=== PATIENT | female | born 1955 | race Caucasian/White ===

== ENCOUNTER 2017-12-07 14:51 | Emergency (ER) | payer MEDICARE, OTHER ==
[~2017-12-07] VITALS: Ht 167.6 cm; Wt 78.9 kg
[~2017-12-07 14:51] MED LIST: ATOR40TA; BLOOD PRESSURE MED; CYCL10 PO; FLUDROCORTISONE PO; HYDACE5 PO; HYDCOR20 PO; HYDMOR4 PO; INSLI100I; INSULANI; MECL25 PO; MELO7.5; MELO7.5 PO; METF500; METO5A; NAPR220; Norco 5-325 Ta1 EACH PO; OMEP20ER; ONDA8 PO; OXYACE5T PO; Omeprazole20 M1; POTA10T; PRED10 PO; PROM25 PO; ROSU10TA; RXCYCL10 PO; RXHYDACE PO; RXHYDMOR2 PO; RXOXYACE PO; RXPROM25 PO; [UNRECOGNIZED DRUG - REMARK]
[2017-12-07] MEDS ORDERED: Cleocin HCl150 MG PO (15:17)
[2018-07-28] MEDS ORDERED: ACET325 PO (07:23)
[2018-07-28] MEDS ORDERED: ONDA4ODT (07:26)
[2018-07-28] MEDS ORDERED: PROBIOTIC1 EAC1 PO (07:26)
[2018-07-28] MEDS ORDERED: SIME80CH PO (07:27)
[2018-07-28] MEDS ORDERED: Senna-Docusate1 EACH PO (07:27)
[2018-07-28] MEDS ORDERED: OXYC10TA19 PO (07:28)
== END 2017-12-07 15:22 | disposition home or self-care (01) ==
LOC: ER 14:51
DX: H93.8X1 Other specified disorders of right ear (principal); H92.01 Otalgia, right ear; Z88.2 Allergy status to sulfonamides; Z91.040 Latex allergy status; Z79.899 Other long term (current) drug therapy; Z79.84 Long term (current) use of oral hypoglycemic drugs; Z79.2 Long term (current) use of antibiotics; Z87.891 Personal history of nicotine dependence
CPT/HCPCS: 99282

== ENCOUNTER → 2017-12-09 | Outpatient (CLI) | payer MEDICARE, OTHER ==
[~2017-12-09] MED LIST changes: +ACET325 PO; +ATOR40TA PO; +CARV3.125 PO; +Cleocin HCl150 MG PO; +DULO30 PO; +FAMO20 PO; +FLUC200 PO; +FOLI400 PO; +FURO40 PO; +Lisinopril2.5 MG PO; +METF500C PO; +ONDA4ODT; +OXYC10TA19 PO; +OXYC5 PO; +PANT40 PO; +POTCHL20ER PO; +PROBIOTIC1 EAC1 PO; +SIME80CH PO; +Senna-Docusate1 EACH PO; +TRAZ50 PO
== END ==
LOC: LAB 15:29
DX: H60.01 Abscess of right external ear (principal)
CPT/HCPCS: 87070; 87205

== ENCOUNTER → 2017-12-14 | Outpatient (CLI) | payer MEDICARE, OTHER | END | disposition home or self-care (01) | LOC: LAB 17:42 | DX: H61.001 Unspecified perichondritis of right external ear (principal) | CPT/HCPCS: 87070; 87205 ==

== ENCOUNTER → 2017-12-21 | Outpatient (CLI) | payer MEDICARE, OTHER | END | disposition home or self-care (01) | LOC: LAB 12:18 | DX: H61.001 Unspecified perichondritis of right external ear (principal) | CPT/HCPCS: 87070; 87075; 87077; 87205 ==

== ENCOUNTER → 2017-12-29 | Outpatient (CLI) | payer MEDICARE, OTHER | LOC: LAB 13:01 | DX: H61.001 Unspecified perichondritis of right external ear (principal) | CPT/HCPCS: 87070; 87205 ==

== ENCOUNTER → 2018-01-17 | Outpatient (CLI) | payer MEDICARE, OTHER ==
[~2018-01-17] MED LIST changes: -ACET325 PO; -ATOR40TA PO; -CARV3.125 PO; -DULO30 PO; -FAMO20 PO; -FLUC200 PO; -FOLI400 PO; -FURO40 PO; -Lisinopril2.5 MG PO; -METF500C PO; -ONDA4ODT; -OXYC10TA19 PO; -OXYC5 PO; -PANT40 PO; -POTCHL20ER PO; -PROBIOTIC1 EAC1 PO; -SIME80CH PO; -Senna-Docusate1 EACH PO; -TRAZ50 PO
== END ==
LOC: LAB 16:09 → LAB SHORT 16:09
DX: H61.001 Unspecified perichondritis of right external ear (principal)
CPT/HCPCS: 87070; 87205

== ENCOUNTER 2018-04-02 08:31 | Emergency (ER) | payer MEDICARE, OTHER ==
[~2018-04-02] VITALS: Ht 165.1 cm; Wt 71.2 kg
[2018-04-02] MEDS ORDERED: Lisinopril2.5 MG PO (09:47)
[2018-04-02] MEDS ORDERED: FOLI400 PO (09:47)
[2018-04-02] MEDS ORDERED: FURO40 PO (09:47)
[2018-04-02] MEDS ORDERED: METF500C PO (09:47)
[2018-04-02] MEDS ORDERED: ATOR40TA PO (09:47)
[2018-04-02] MEDS ORDERED: PANT40 PO (09:48)
[2018-04-02] MEDS ORDERED: CARV3.125 PO (09:48)
[2018-04-02] MEDS ORDERED: OXYC5 PO (09:48)
[2018-04-02] MEDS ORDERED: FAMO20 PO (09:48)
[2018-04-02] MEDS ORDERED: DULO30 PO (09:48)
[2018-04-02] MEDS ORDERED: TRAZ50 PO (09:49)
== END 2018-04-02 10:04 | disposition home or self-care (01) ==
LOC: ER 08:31
DX: Z46.59 Encounter for fitting and adjustment of other gastrointestinal appliance and device (principal); Z88.2 Allergy status to sulfonamides; Z91.040 Latex allergy status; Z79.899 Other long term (current) drug therapy; Z79.84 Long term (current) use of oral hypoglycemic drugs; Z87.891 Personal history of nicotine dependence
CPT/HCPCS: 99283

== ENCOUNTER 2018-06-13 13:05 | Day surgery (SDC) | payer MEDICARE, OTHER ==
[~2018-06-13 13:05] MED LIST changes: +ATOR40TA PO; +CARV3.125 PO; +DULO30 PO; +FAMO20 PO; +FOLI400 PO; +FURO40 PO; +Lisinopril2.5 MG PO; +METF500C PO; +OXYC5 PO; +PANT40 PO; +TRAZ50 PO
[2018-06-14] MEDS ORDERED: FLUC200 PO (13:52)
== END 2018-06-13 13:55 | disposition home or self-care (01) ==
LOC: ATC 13:05
DX: K65.1 Peritoneal abscess (principal)
CPT/HCPCS: 96365; J1335

== ENCOUNTER 2018-06-14 00:12 | Day surgery (SDC) | payer MEDICARE, OTHER ==
[2018-06-14] MEDS ORDERED: FLUC200 PO (13:52)
== END 2018-06-14 14:12 | disposition home or self-care (01) ==
LOC: ATC 00:12
DX: K65.1 Peritoneal abscess (principal)
CPT/HCPCS: 96365; J1335

== ENCOUNTER 2018-06-15 07:29 | Day surgery (SDC) | payer MEDICARE, OTHER ==
[~2018-06-15 07:29] MED LIST changes: +FLUC200 PO
== END 2018-06-15 14:06 | disposition home or self-care (01) ==
LOC: ATC 07:29
DX: K65.1 Peritoneal abscess (principal); Z87.891 Personal history of nicotine dependence
CPT/HCPCS: 96365; J1335

== ENCOUNTER 2018-06-16 00:04 | Day surgery (SDC) | payer MEDICARE, OTHER | END 2018-06-16 14:45 | disposition home or self-care (01) | LOC: ATC 00:04 | DX: K65.1 Peritoneal abscess (principal); Z87.891 Personal history of nicotine dependence; H61.001 Unspecified perichondritis of right external ear | CPT/HCPCS: 96365; J1335 ==

== ENCOUNTER 2018-06-17 00:19 | Day surgery (SDC) | payer MEDICARE, OTHER | END 2018-06-17 14:37 | disposition home or self-care (01) | LOC: ATC 00:19 | DX: K65.1 Peritoneal abscess (principal); Z87.891 Personal history of nicotine dependence; H61.001 Unspecified perichondritis of right external ear | CPT/HCPCS: 96365; J1335 ==

== ENCOUNTER 2018-06-18 13:51 | Day surgery (SDC) | payer MEDICARE, OTHER ==
[2018-06-18 14:41] LABS: BASOPHILS ABSOLUTE AUTO 0.06 K/mm3 (0.00-0.23); BASOPHILS PERCENT AUTO 1 % (0-2); EOSINOPHILS PERCENT AUTO 1 % (0-6); Hematocrit 30.5 % (33.0-51.0); Hemoglobin 9.7 g/dL (11.5-16.0); IMMATURE GRAN ABSOLUTE AUTO 0.01 K/mm3 (0.00-0.10); IMMATURE GRAN PERCENT AUTO 0 % (0-1); LYMPHOCYTES ABSOLUTE AUTO 2.38 K/mm3 (0.84-5.20); LYMPHOCYTES PERCENT AUTO 31 % (21-46); MONOCYTES ABSOLUTE AUTO 0.52 K/mm3 (0.16-1.47); MONOCYTES PERCENT AUTO 7 % (4-13); Mean Corpuscular HGB 29.5 pg (26.0-34.0); Mean Corpuscular HGB Conc 31.8 g/dL (31.5-36.5); Mean Corpuscular Volume 93 fL (80-100); Mean Platelet Volume 9.4 fL (9.1-12.4); NEUTROPHILS ABSOLUTE AUTO 4.64 K/mm3 (1.96-9.15); NEUTROPHILS PERCENT AUTO 60 % (41-73); Platelet Count 544 K/mm3 (150-400); RDW Coefficient Variation 16.2 % (11.7-14.2); RDW Standard Deviation 55.1 fL (35.1-46.3); Red Blood Cell Count 3.29 M/mm3 (3.80-5.20); White Blood Cell Count 7.71 K/mm3 (4.00-11.30)
[2018-06-18 15:01] LABS: Alanine Aminotransfer (ALT/SGP 15 U/L (12-78); Albumin, Blood 2.7 g/dL (3.4-5.0); Albumin/Globulin Ratio 0.6 (0.8-1.8); Alk Phos 92 U/L (50-136); Anion Gap 9 mmol/L (6-16); Aspartate Aminotrans (AST/SGOT 17 U/L (12-37); Bilirubin, Total 0.2 mg/dL (0.1-1.0); Blood Urea Nitrogen 8 mg/dL (8-24); Bun/Creatinine Ratio 11.1 (12.0-20.0); C-REACTIVE PROTEIN, EXT RANGE <0.290 mg/dL (0.000-0.300); CO2, Blood 27 mmol/L (21-32); Chloride, Blood 108 mmol/L (98-108); Creatinine, Blood 0.72 mg/dL (0.40-1.00); Globulin, Blood 4.3 g/dL (2.2-4.0); Glomerular Filtration Rate >60 (60-); Glucose, Blood 116 mg/dL (70-99); Potassium, Blood 3.1 mmol/L (3.5-5.5); Sodium, Blood 144 mmol/L (136-145)
== END 2018-06-18 23:59 | disposition home or self-care (01) ==
LOC: ATC 13:51
PROVIDERS: Internal Medicine
DX: K65.1 Peritoneal abscess (principal); Z87.891 Personal history of nicotine dependence; H61.001 Unspecified perichondritis of right external ear
CPT/HCPCS: 80053; 85025; 86140; 96365; J1335

== ENCOUNTER 2018-06-19 13:40 | Day surgery (SDC) | payer MEDICARE, OTHER | END 2018-06-19 14:10 | disposition home or self-care (01) | LOC: ATC 13:40 | DX: K65.1 Peritoneal abscess (principal); Z87.891 Personal history of nicotine dependence; H61.001 Unspecified perichondritis of right external ear | CPT/HCPCS: 96365; J1335 ==

== ENCOUNTER 2018-06-20 00:07 | Day surgery (SDC) | payer MEDICARE, OTHER | END 2018-06-20 14:24 | disposition home or self-care (01) | LOC: ATC 00:07 | DX: K65.1 Peritoneal abscess (principal); Z87.891 Personal history of nicotine dependence; H61.001 Unspecified perichondritis of right external ear | CPT/HCPCS: 96365; J1335 ==

== ENCOUNTER 2018-06-21 00:05 | Day surgery (SDC) | payer MEDICARE, OTHER | END 2018-06-21 22:59 | disposition home or self-care (01) | LOC: ATC 00:05 | DX: K65.1 Peritoneal abscess (principal) | CPT/HCPCS: 96365; J1335 ==

== ENCOUNTER 2018-06-22 13:58 | Day surgery (SDC) | payer MEDICARE, OTHER | END 2018-06-22 14:44 | disposition home or self-care (01) | LOC: ATC 13:58 | DX: K65.1 Peritoneal abscess (principal); Z87.891 Personal history of nicotine dependence; H61.001 Unspecified perichondritis of right external ear | CPT/HCPCS: 96365; J1335 ==

== ENCOUNTER 2018-06-23 00:08 | Day surgery (SDC) | payer MEDICARE, OTHER | END 2018-06-23 14:35 | disposition home or self-care (01) | LOC: ATC 00:08 | DX: K65.1 Peritoneal abscess (principal) | CPT/HCPCS: 96365; J1335 ==

== ENCOUNTER → 2018-06-23 | Outpatient (CLI) | payer MEDICARE, OTHER ==
[2018-06-24 14:35] LABS: Stool Occult Bld Immuno 1 Negative (NEGATIVE)
== END ==
LOC: LAB SHORT 15:00 → LAB EV 15:00
PROVIDERS: Student in an Organized Health Care Education/Training Program
DX: D64.89 Other specified anemias (principal)
CPT/HCPCS: 82274

== ENCOUNTER 2018-06-24 00:19 | Day surgery (SDC) | payer MEDICARE, OTHER | END 2018-06-24 14:27 | disposition home or self-care (01) | LOC: ATC 00:19 | DX: K65.1 Peritoneal abscess (principal) | CPT/HCPCS: 96365; J1335 ==

== ENCOUNTER 2018-06-25 13:26 | Day surgery (SDC) | payer MEDICARE, OTHER ==
[2018-06-25 15:00] LABS: Alanine Aminotransfer (ALT/SGP 63 U/L (12-78); Albumin, Blood 2.7 g/dL (3.4-5.0); Albumin/Globulin Ratio 0.7 (0.8-1.8); Alk Phos 171 U/L (50-136); Anion Gap 7 mmol/L (6-16); Aspartate Aminotrans (AST/SGOT 70 U/L (12-37); Bilirubin, Total 0.4 mg/dL (0.1-1.0); Blood Urea Nitrogen 8 mg/dL (8-24); Bun/Creatinine Ratio 11.1 (12.0-20.0); C-REACTIVE PROTEIN, EXT RANGE 0.414 mg/dL (0.000-0.300); CO2, Blood 27 mmol/L (21-32); Calcium, Blood 8.1 mg/dL (8.5-10.1); Chloride, Blood 108 mmol/L (98-108); Creatinine, Blood 0.72 mg/dL (0.40-1.00); Globulin, Blood 4.1 g/dL (2.2-4.0); Glomerular Filtration Rate >60 (60-); Glucose, Blood 108 mg/dL (70-99); Potassium, Blood 3.8 mmol/L (3.5-5.5); Sodium, Blood 142 mmol/L (136-145); Total Protein, Blood 6.8 g/dL (6.4-8.2)
[2018-06-25 15:01] LABS: BASOPHILS ABSOLUTE AUTO 0.08 K/mm3 (0.00-0.23); BASOPHILS PERCENT AUTO 1 % (0-2); EOSINOPHILS ABSOLUTE AUTO 0.11 K/mm3 (0.00-0.68); EOSINOPHILS PERCENT AUTO 1 % (0-6); Hematocrit 31.6 % (33.0-51.0); IMMATURE GRAN ABSOLUTE AUTO 0.02 K/mm3 (0.00-0.10); IMMATURE GRAN PERCENT AUTO 0 % (0-1); LYMPHOCYTES ABSOLUTE AUTO 2.21 K/mm3 (0.84-5.20); LYMPHOCYTES PERCENT AUTO 24 % (21-46); MONOCYTES ABSOLUTE AUTO 0.63 K/mm3 (0.16-1.47); MONOCYTES PERCENT AUTO 7 % (4-13); Mean Corpuscular HGB 29.4 pg (26.0-34.0); Mean Corpuscular HGB Conc 31.6 g/dL (31.5-36.5); Mean Corpuscular Volume 93 fL (80-100); Mean Platelet Volume 9.7 fL (9.1-12.4); NEUTROPHILS ABSOLUTE AUTO 6.28 K/mm3 (1.96-9.15); NEUTROPHILS PERCENT AUTO 67 % (41-73); Platelet Count 468 K/mm3 (150-400); RDW Coefficient Variation 16.2 % (11.7-14.2); RDW Standard Deviation 55.3 fL (35.1-46.3); White Blood Cell Count 9.33 K/mm3 (4.00-11.30)
== END 2018-06-25 14:16 | disposition home or self-care (01) ==
LOC: ATC 13:26
PROVIDERS: Internal Medicine
DX: K65.1 Peritoneal abscess (principal)
CPT/HCPCS: 80053; 85025; 86140; 96365; J1335

== ENCOUNTER 2018-06-26 13:26 | Day surgery (SDC) | payer MEDICARE, OTHER | END 2018-06-26 13:55 | disposition home or self-care (01) | LOC: ATC 13:26 | DX: K65.1 Peritoneal abscess (principal) | CPT/HCPCS: 96365; J1335 ==

== ENCOUNTER 2018-06-27 00:15 | Day surgery (SDC) | payer MEDICARE, OTHER | END 2018-06-27 14:07 | disposition home or self-care (01) | LOC: ATC 00:15 | DX: K65.1 Peritoneal abscess (principal) | CPT/HCPCS: 96374; J1335 ==

== ENCOUNTER 2018-06-28 00:12 | Day surgery (SDC) | payer MEDICARE, OTHER ==
[2018-06-28 14:57] LABS: BASOPHILS ABSOLUTE AUTO 0.07 K/mm3 (0.00-0.23); BASOPHILS PERCENT AUTO 1 % (0-2); EOSINOPHILS ABSOLUTE AUTO 0.13 K/mm3 (0.00-0.68); EOSINOPHILS PERCENT AUTO 1 % (0-6); Hemoglobin 10.5 g/dL (11.5-16.0); IMMATURE GRAN ABSOLUTE AUTO 0.02 K/mm3 (0.00-0.10); IMMATURE GRAN PERCENT AUTO 0 % (0-1); LYMPHOCYTES ABSOLUTE AUTO 2.46 K/mm3 (0.84-5.20); LYMPHOCYTES PERCENT AUTO 26 % (21-46); MONOCYTES ABSOLUTE AUTO 0.63 K/mm3 (0.16-1.47); MONOCYTES PERCENT AUTO 7 % (4-13); Mean Corpuscular HGB 29.2 pg (26.0-34.0); Mean Corpuscular HGB Conc 31.8 g/dL (31.5-36.5); Mean Corpuscular Volume 92 fL (80-100); Mean Platelet Volume 9.9 fL (9.1-12.4); NEUTROPHILS ABSOLUTE AUTO 6.08 K/mm3 (1.96-9.15); NEUTROPHILS PERCENT AUTO 65 % (41-73); Platelet Count 457 K/mm3 (150-400); RDW Coefficient Variation 16.4 % (11.7-14.2); RDW Standard Deviation 54.5 fL (35.1-46.3); Red Blood Cell Count 3.59 M/mm3 (3.80-5.20); White Blood Cell Count 9.39 K/mm3 (4.00-11.30)
[2018-06-28 15:18] LABS: Alanine Aminotransfer (ALT/SGP 68 U/L (12-78); Albumin, Blood 2.8 g/dL (3.4-5.0); Albumin/Globulin Ratio 0.7 (0.8-1.8); Alk Phos 196 U/L (50-136); Anion Gap 8 mmol/L (6-16); Aspartate Aminotrans (AST/SGOT 59 U/L (12-37); Bilirubin, Total 0.3 mg/dL (0.1-1.0); Blood Urea Nitrogen 10 mg/dL (8-24); Bun/Creatinine Ratio 12.9 (12.0-20.0); CO2, Blood 30 mmol/L (21-32); Calcium, Blood 8.6 mg/dL (8.5-10.1); Chloride, Blood 104 mmol/L (98-108); Creatinine, Blood 0.78 mg/dL (0.40-1.00); Globulin, Blood 4.3 g/dL (2.2-4.0); Glomerular Filtration Rate >60 (60-); Glucose, Blood 139 mg/dL (70-99); Potassium, Blood 3.8 mmol/L (3.5-5.5); Sodium, Blood 142 mmol/L (136-145); Total Protein, Blood 7.1 g/dL (6.4-8.2)
== END 2018-06-28 14:25 | disposition home or self-care (01) ==
LOC: ATC 00:12
PROVIDERS: Internal Medicine
DX: K65.1 Peritoneal abscess (principal)
CPT/HCPCS: 80053; 85025; 86140; 96365; J1335

== ENCOUNTER 2018-06-29 08:51 | Day surgery (SDC) | payer MEDICARE, OTHER | END 2018-06-29 10:30 | disposition home or self-care (01) | LOC: ATC 08:51 | DX: K65.1 Peritoneal abscess (principal) | CPT/HCPCS: 96365; J1335 ==

== ENCOUNTER 2018-06-30 00:16 | Day surgery (SDC) | payer MEDICARE, OTHER ==
[2018-07-01] MEDS ORDERED: POTCHL20ER PO (18:21)
== END 2018-06-30 14:23 | disposition home or self-care (01) ==
LOC: ATC 00:16
DX: K65.1 Peritoneal abscess (principal)
CPT/HCPCS: 96365; J1335

== ENCOUNTER 2018-07-01 00:40 | Day surgery (SDC) | payer MEDICARE, OTHER ==
[2018-07-01] MEDS ORDERED: POTCHL20ER PO (18:21)
== END 2018-07-01 14:25 | disposition home or self-care (01) ==
LOC: ATC 00:40
DX: K65.1 Peritoneal abscess (principal)
CPT/HCPCS: 96365; J1335

== ENCOUNTER 2018-07-01 14:28 | Emergency (ER) | payer MEDICARE, OTHER ==
[~2018-07-01] VITALS: Ht 167.6 cm; Wt 69.8 kg
[2018-07-01 16:01] LABS: BASOPHILS ABSOLUTE AUTO 0.04 K/mm3 (0.00-0.23); BASOPHILS PERCENT AUTO 0 % (0-2); EOSINOPHILS ABSOLUTE AUTO 0.05 K/mm3 (0.00-0.68); EOSINOPHILS PERCENT AUTO 1 % (0-6); Hematocrit 31.2 % (33.0-51.0); Hemoglobin 9.9 g/dL (11.5-16.0); IMMATURE GRAN ABSOLUTE AUTO 0.01 K/mm3 (0.00-0.10); IMMATURE GRAN PERCENT AUTO 0 % (0-1); LYMPHOCYTES ABSOLUTE AUTO 1.71 K/mm3 (0.84-5.20); LYMPHOCYTES PERCENT AUTO 18 % (21-46); MONOCYTES ABSOLUTE AUTO 0.95 K/mm3 (0.16-1.47); MONOCYTES PERCENT AUTO 10 % (4-13); Mean Corpuscular HGB 29.2 pg (26.0-34.0); Mean Corpuscular HGB Conc 31.7 g/dL (31.5-36.5); Mean Corpuscular Volume 92 fL (80-100); Mean Platelet Volume 10.2 fL (9.1-12.4); NEUTROPHILS ABSOLUTE AUTO 6.54 K/mm3 (1.96-9.15); NEUTROPHILS PERCENT AUTO 70 % (41-73); Platelet Count 394 K/mm3 (150-400); RDW Coefficient Variation 15.9 % (11.7-14.2); RDW Standard Deviation 54.1 fL (35.1-46.3); Red Blood Cell Count 3.39 M/mm3 (3.80-5.20)
[2018-07-01 16:17] LABS: Alanine Aminotransfer (ALT/SGP 54 U/L (12-78); Albumin, Blood 2.6 g/dL (3.4-5.0); Albumin/Globulin Ratio 0.6 (0.8-1.8); Alk Phos 180 U/L (50-136); Anion Gap 9 mmol/L (6-16); Aspartate Aminotrans (AST/SGOT 42 U/L (12-37); Bilirubin, Total 0.4 mg/dL (0.1-1.0); Blood Urea Nitrogen 7 mg/dL (8-24); Bun/Creatinine Ratio 11.1 (12.0-20.0); CO2, Blood 25 mmol/L (21-32); Calcium, Blood 8.6 mg/dL (8.5-10.1); Chloride, Blood 103 mmol/L (98-108); Creatinine, Blood 0.63 mg/dL (0.40-1.00); Globulin, Blood 4.5 g/dL (2.2-4.0); Glomerular Filtration Rate >60 (60-); Glucose, Blood 96 mg/dL (70-99); Sodium, Blood 137 mmol/L (136-145); Total Protein, Blood 7.1 g/dL (6.4-8.2)
[2018-07-01] MEDS ORDERED: POTCHL20ER PO (18:21)
[2018-07-01 18:29] LABS: Source, Urine Clean Catch
[2018-07-01 18:32] LABS: Appearance, Urine Clear (Clear); Bilirubin, Urine Neg (Neg); Blood, Urine Neg (Neg); Color, Urine Yellow (P-Yellow); Glucose Qualitative, Urine Neg (Neg); Ketones, Urine Neg (Neg); Leukocyte Esterase, Urine 1+ (Neg); Nitrite, Urine Neg (Neg); Protein, Urine Neg (Neg); Urobilinogen, Urine NORM (Normal)
[2018-07-01 19:17] LABS: Bacteria Not Seen /hpf; Red Blood Cells, Urine Not Seen /hpf (0-2); Squamous Epithelial Cells Few /hpf (Few)
== END 2018-07-02 22:00 | disposition short-term general hospital (02) ==
LOC: ER 14:28
PROVIDERS: Emergency Medicine
DX: K26.5 Chronic or unspecified duodenal ulcer with perforation (principal); Z90.49 Acquired absence of other specified parts of digestive tract; Z87.891 Personal history of nicotine dependence
CPT/HCPCS: 36415; 74177; 80053; 81001; 83605; 83690; 85025; 87086; C9113; J1170; J2405; J2543; J3010; J3370; J7030; Q9967

== ENCOUNTER 2018-07-03 02:02 | Day surgery (SDC) | payer MEDICARE, OTHER ==
[~2018-07-03 02:02] MED LIST changes: +POTCHL20ER PO
== END 2018-07-03 22:47 | disposition home or self-care (01) ==
LOC: ATC 02:02
DX: K65.1 Peritoneal abscess (principal)
CPT/HCPCS: J1335

== ENCOUNTER 2018-07-05 00:16 | Day surgery (SDC) | payer MEDICARE, OTHER | END 2018-07-05 23:08 | disposition home or self-care (01) | LOC: ATC 00:16 | DX: K65.1 Peritoneal abscess (principal) ==

== ENCOUNTER 2018-07-06 02:05 | Day surgery (SDC) | payer MEDICARE, OTHER | END 2018-07-06 22:55 | disposition home or self-care (01) | LOC: ATC 02:05 | DX: K65.1 Peritoneal abscess (principal) ==

== ENCOUNTER → 2018-11-20 | Outpatient (CLI) | payer MEDICARE, OTHER ==
[~2018-11-20] MED LIST changes: +ACET325 PO; +ONDA4ODT; +OXYC10TA19 PO; +PROBIOTIC1 EAC1 PO; +SIME80CH PO; +Senna-Docusate1 EACH PO
[2018-11-22 14:31] LABS: Stool Occult Bld Immuno 1 Positive (NEGATIVE)
== END ==
LOC: LAB EV 12:30 → LAB FUT 06-22 09:55 → EDSTATUS 06-22 09:55
PROVIDERS: Student in an Organized Health Care Education/Training Program
DX: D64.89 Other specified anemias (principal)
CPT/HCPCS: 82274

== ENCOUNTER → 2018-12-27 | Outpatient (CLI) | payer MEDICARE, OTHER ==
[2018-12-28 14:43] LABS: Stool Occult Bld Immuno 1 Positive (NEGATIVE); Stool Occult Bld Immuno 2 Positive (NEGATIVE)
== END | disposition home or self-care (01) ==
LOC: LAB EV 22:15
PROVIDERS: Internal Medicine Gastroenterology
DX: E11.49 Type 2 diabetes mellitus with other diabetic neurological complication (principal); D64.9 Anemia, unspecified
CPT/HCPCS: 82274

== ENCOUNTER 2019-08-19 17:53 | Emergency (ER) | payer MEDICARE, OTHER ==
[~2019-08-19] VITALS: Ht 165.1 cm; Wt 72.1 kg
[2019-08-19] MEDS ORDERED: POTCHL20ER PO (21:16)
[2019-08-19] MEDS ORDERED: FAMO20 PO (21:17)
[2019-08-19] MEDS ORDERED: ROPI.25 PO (21:17)
[2019-08-20] MEDS ORDERED: SUCR1 PT (14:16)
[2019-08-20] MEDS ORDERED: Norco 7.5-3251 EACH PO (14:16)
[2019-08-20] MEDS ORDERED: TRAZ100 PO (14:16)
[2019-08-20] MEDS ORDERED: FOLI400 PO (16:34)
[2019-08-20] MEDS ORDERED: Vitamin D2000 UNIT PO (16:34)
[2019-08-20] MEDS ORDERED: Humalog100 UNIT/1 SC (16:35)
[2019-08-20] MEDS ORDERED: Lisinopril2.5 MG PO (16:35)
[2019-08-20] MEDS ORDERED: THERA1 EACH PO (16:36)
[2019-08-20] MEDS ORDERED: METF500 PO (16:36)
[2019-08-20] MEDS ORDERED: SIME80CH PO (16:36)
[2019-08-20] MEDS ORDERED: ROPI.25 PO (16:37)
== END 2019-08-19 21:47 | disposition home or self-care (01) ==
LOC: ER 17:53
DX: M70.72 Other bursitis of hip, left hip (principal); Z87.891 Personal history of nicotine dependence; Z88.2 Allergy status to sulfonamides; Z91.040 Latex allergy status; Z79.899 Other long term (current) drug therapy; Z79.891 Long term (current) use of opiate analgesic
CPT/HCPCS: 73502; 96372; 99283-25; J1885

== ENCOUNTER 2020-02-11 22:57 | Emergency (ER) | payer MEDICARE, OTHER ==
[~2020-02-11] VITALS: Ht 165.1 cm; Wt 81.7 kg
[~2020-02-11 22:57] MED LIST changes: +Daily Multiple1 EACH PO; +Humalog100 UNIT/1 SC; +METF500 PO; +Norco 7.5-3251 EACH PO; +ONDA4ODT MM; +Percocet 5-3251 EACH PO; +ROPI.25 PO; +SUCR1 PT; +TRAZ100 PO; +Vitamin D2000 UNIT PO
[2020-02-11 23:49] LABS: BASOPHILS ABSOLUTE AUTO 0.02 K/mm3 (0.00-0.23); BASOPHILS PERCENT AUTO 0 % (0-2); EOSINOPHILS ABSOLUTE AUTO 0.01 K/mm3 (0.00-0.68); EOSINOPHILS PERCENT AUTO 0 % (0-6); Hematocrit 31.9 % (33.0-51.0); Hemoglobin 10.3 g/dL (11.5-16.0); IMMATURE GRAN ABSOLUTE AUTO 0.04 K/mm3 (0.00-0.10); IMMATURE GRAN PERCENT AUTO 0 % (0-1); LYMPHOCYTES PERCENT AUTO 6 % (21-46); MONOCYTES ABSOLUTE AUTO 0.52 K/mm3 (0.16-1.47); MONOCYTES PERCENT AUTO 6 % (4-13); Mean Corpuscular HGB 29.3 pg (26.0-34.0); Mean Corpuscular HGB Conc 32.3 g/dL (31.5-36.5); Mean Corpuscular Volume 91 fL (80-100); NEUTROPHILS ABSOLUTE AUTO 7.94 K/mm3 (1.96-9.15); NEUTROPHILS PERCENT AUTO 88 % (41-73); Platelet Count 247 K/mm3 (150-400); RDW Coefficient Variation 15.4 % (11.7-14.2); RDW Standard Deviation 51.2 fL (35.1-46.3); Red Blood Cell Count 3.51 M/mm3 (3.80-5.20); White Blood Cell Count 9.03 K/mm3 (4.00-11.30)
[2020-02-12 00:06] LABS: Alanine Aminotransfer (ALT/SGP 48 U/L (12-78); Albumin, Blood 2.5 g/dL (3.4-5.0); Albumin/Globulin Ratio 0.6 (0.8-1.8); Alk Phos 132 U/L (50-136); Anion Gap 6 mmol/L (6-16); Aspartate Aminotrans (AST/SGOT 25 U/L (12-37); Bilirubin, Total 1.2 mg/dL (0.1-1.0); Blood Urea Nitrogen 15 mg/dL (8-24); Bun/Creatinine Ratio 19.1 (12.0-20.0); CO2, Blood 24 mmol/L (21-32); Calcium, Blood 8.5 mg/dL (8.5-10.1); Chloride, Blood 104 mmol/L (98-108); Creatinine, Blood 0.79 mg/dL (0.40-1.00); Globulin, Blood 3.9 g/dL (2.2-4.0); Glomerular Filtration Rate >60 (60-); Glucose, Blood 222 mg/dL (70-99); Potassium, Blood 3.6 mmol/L (3.5-5.5); Sodium, Blood 134 mmol/L (136-145); Total Protein, Blood 6.4 g/dL (6.4-8.2)
== END 2020-02-12 02:41 | disposition short-term general hospital (02) ==
LOC: ER 22:57
PROVIDERS: Emergency Medicine
DX: K65.1 Peritoneal abscess (principal); G47.30 Sleep apnea, unspecified; Z87.891 Personal history of nicotine dependence; Z79.899 Other long term (current) drug therapy
CPT/HCPCS: 36415; 74177; 80053; 83690; 85025; 96361; 96365; 96375; 99285-25; J1170; J2405; J2543; J7120; Q9967

== ENCOUNTER 2020-03-31 19:44 | Emergency (ER) | payer MEDICARE, OTHER ==
[~2020-03-31] VITALS: Ht 165.1 cm; Wt 75.8 kg
[2020-03-31 20:04] LABS: BASOPHILS ABSOLUTE AUTO 0.04 K/mm3 (0.00-0.23); BASOPHILS PERCENT AUTO 0 % (0-2); EOSINOPHILS ABSOLUTE AUTO 0.04 K/mm3 (0.00-0.68); EOSINOPHILS PERCENT AUTO 0 % (0-6); Hemoglobin 9.4 g/dL (11.5-16.0); IMMATURE GRAN ABSOLUTE AUTO 0.09 K/mm3 (0.00-0.10); IMMATURE GRAN PERCENT AUTO 1 % (0-1); LYMPHOCYTES ABSOLUTE AUTO 1.95 K/mm3 (0.84-5.20); LYMPHOCYTES PERCENT AUTO 12 % (21-46); MONOCYTES ABSOLUTE AUTO 0.84 K/mm3 (0.16-1.47); MONOCYTES PERCENT AUTO 5 % (4-13); Mean Corpuscular HGB 27.8 pg (26.0-34.0); Mean Corpuscular HGB Conc 30.3 g/dL (31.5-36.5); Mean Corpuscular Volume 92 fL (80-100); Mean Platelet Volume 9.1 fL (9.1-12.4); NEUTROPHILS ABSOLUTE AUTO 13.17 K/mm3 (1.96-9.15); NEUTROPHILS PERCENT AUTO 82 % (41-73); Platelet Count 640 K/mm3 (150-400); RDW Coefficient Variation 15.9 % (11.7-14.2); RDW Standard Deviation 52.7 fL (35.1-46.3); Red Blood Cell Count 3.38 M/mm3 (3.80-5.20); White Blood Cell Count 16.13 K/mm3 (4.00-11.30)
[2020-03-31 20:25] LABS: Alanine Aminotransfer (ALT/SGP 11 U/L (12-78); Albumin, Blood 2.1 g/dL (3.4-5.0); Albumin/Globulin Ratio 0.4 (0.8-1.8); Alk Phos 137 U/L (50-136); Anion Gap 9 mmol/L (6-16); Aspartate Aminotrans (AST/SGOT 12 U/L (12-37); Bilirubin, Total 0.4 mg/dL (0.1-1.0); Blood Urea Nitrogen 9 mg/dL (8-24); Bun/Creatinine Ratio 12.5 (12.0-20.0); CO2, Blood 21 mmol/L (21-32); Calcium, Blood 8.5 mg/dL (8.5-10.1); Chloride, Blood 105 mmol/L (98-108); Creatinine, Blood 0.72 mg/dL (0.40-1.00); Globulin, Blood 4.7 g/dL (2.2-4.0); Glomerular Filtration Rate >60 (60-); Glucose, Blood 150 mg/dL (70-99); Potassium, Blood 3.9 mmol/L (3.5-5.5); Sodium, Blood 135 mmol/L (136-145); Total Protein, Blood 6.8 g/dL (6.4-8.2)
== END 2020-04-01 01:30 | disposition short-term general hospital (02) ==
LOC: ER 19:44
PROVIDERS: Emergency Medicine
DX: A41.9 Sepsis, unspecified organism (principal); L02.211 Cutaneous abscess of abdominal wall; Z88.2 Allergy status to sulfonamides; Z91.040 Latex allergy status; Z79.899 Other long term (current) drug therapy; G47.30 Sleep apnea, unspecified; Z87.891 Personal history of nicotine dependence; Z90.49 Acquired absence of other specified parts of digestive tract; Z98.84 Bariatric surgery status
CPT/HCPCS: 36415; 74177; 80053; 83605; 83690; 85025; 96365-59; 96375-59; 96376; 96376-59; 99285-25; J1170; J2405; J2543; J7120; Q9967; U0002

== ENCOUNTER → 2020-04-30 | Outpatient (CLI) | payer MEDICARE, OTHER | END | disposition home or self-care (01) | LOC: LAB EV 13:37 | DX: R30.9 Painful micturition, unspecified (principal) | CPT/HCPCS: 87077; 87086; 87186 ==

== ENCOUNTER → 2020-05-28 | Outpatient (CLI) | payer MEDICARE, OTHER | END | disposition home or self-care (01) | LOC: LAB EV 10:30 → LAB SHORT 10:30 | DX: R30.9 Painful micturition, unspecified (principal) | CPT/HCPCS: 87077; 87086; 87186 ==

== ENCOUNTER 2021-07-30 11:45 | Day surgery (SDC) | payer MEDICARE, OTHER ==
[~2021-07-30] VITALS: Ht 165.1 cm; Wt 79.9 kg
[2021-07-30] MEDS ORDERED: GABA100 (12:20)
== END 2021-07-30 14:15 | disposition home or self-care (01) ==
LOC: ORSCSDS 11:45
PROVIDERS: Internal Medicine Gastroenterology
PROC: 0DB98ZX Excision of Duodenum, Via Natural or Artificial Opening Endoscopic, Diagnostic (ICD-10-PCS; principal; 2021-07-30 13:00)
PROC: 0DBE8ZX Excision of Large Intestine, Via Natural or Artificial Opening Endoscopic, Diagnostic (ICD-10-PCS; principal; 2021-07-30 13:00)
DX: R10.9 Unspecified abdominal pain (principal); R19.4 Change in bowel habit; D50.9 Iron deficiency anemia, unspecified; G47.30 Sleep apnea, unspecified; K57.30 Diverticulosis of large intestine without perforation or abscess without bleeding; Z80.0 Family history of malignant neoplasm of digestive organs; E66.9 Obesity, unspecified; Z68.30 Body mass index [BMI] 30.0-30.9, adult; Z79.899 Other long term (current) drug therapy
CPT/HCPCS: 82947; 87081; 88305; J2704; J7120

== ENCOUNTER → 2021-10-27 | Outpatient (CLI) | payer MEDICARE, OTHER ==
[~2021-10-27] MED LIST changes: +GABA100
== END ==
LOC: LAB SHORT 15:46
DX: R30.0 Dysuria (principal)
CPT/HCPCS: 87077; 87086; 87186

== ENCOUNTER → 2022-11-04 | Outpatient (CLI) | payer MEDICARE, OTHER ==
[~2022-11-04] MED LIST changes: +CEFD300 PO; -GABA100; +GABA100 PO; +SUMA25 PO
== END | disposition home or self-care (01) ==
LOC: LAB 10:30 → LAB SHORT 10:30
DX: R30.9 Painful micturition, unspecified (principal)
CPT/HCPCS: 87077; 87086; 87186

== ENCOUNTER 2024-07-28 14:19 | Emergency (ER) | payer MEDICARE, OTHER ==
[~2024-07-28] VITALS: Ht 165.1 cm; Wt 69.8 kg
[2024-07-28] MEDS ORDERED: HYDROmorphone HCl/Pf 1MG SYR IV ONE (15:00)
[2024-07-28 15:28] LABS: BASOPHILS ABSOLUTE AUTO 0.05 K/mm3 (0.00-0.23); BASOPHILS PERCENT AUTO 0 % (0-2); EOSINOPHILS ABSOLUTE AUTO 0.04 K/mm3 (0.00-0.68); EOSINOPHILS PERCENT AUTO 0 % (0-6); Hemoglobin 13.6 g/dL (11.5-16.0); IMMATURE GRAN ABSOLUTE AUTO 0.04 K/mm3 (0.00-0.10); IMMATURE GRAN PERCENT AUTO 0 % (0-1); LYMPHOCYTES ABSOLUTE AUTO 1.54 K/mm3 (0.84-5.20); LYMPHOCYTES PERCENT AUTO 13 % (21-46); MONOCYTES PERCENT AUTO 8 % (4-13); Mean Corpuscular HGB 30.5 pg (26.0-34.0); Mean Corpuscular HGB Conc 33.2 g/dL (31.5-36.5); Mean Corpuscular Volume 92 fL (80-100); Mean Platelet Volume 9.5 fL (9.1-12.4); NEUTROPHILS ABSOLUTE AUTO 9.45 K/mm3 (1.96-9.15); NEUTROPHILS PERCENT AUTO 78 % (41-73); Platelet Count 395 K/mm3 (150-400); RDW Coefficient Variation 15.7 % (11.7-14.2); RDW Standard Deviation 52.9 fL (35.1-46.3); Red Blood Cell Count 4.46 M/mm3 (3.80-5.20); White Blood Cell Count 12.12 K/mm3 (4.00-11.30)
[2024-07-28 15:44] LABS: Albumin, Blood 3.4 g/dL (3.4-5.0); Bilirubin, Total 0.5 mg/dL (0.1-1.0); Bun/Creatinine Ratio 15.7 (12.0-20.0); Calcium, Blood 9.3 mg/dL (8.5-10.1); Creatinine, Blood 0.7 mg/dL (0.40-1.00); Globulin, Blood 3.4 g/dL (2.2-4.0); Potassium, Blood 4.4 mmol/L (3.5-5.5); Total Protein, Blood 6.8 g/dL (6.4-8.2)
[2024-07-28] MEDS ORDERED: HYDROCODONE-AC1 EA19 PO (16:45)
[2024-07-28 17:00] VITALS: BP 118/60
== END 2024-07-28 17:40 | disposition home or self-care (01) ==
LOC: ER 14:19
PROVIDERS: Emergency Medicine
DX: S93.402A Sprain of unspecified ligament of left ankle, initial encounter (principal); S83.91XA Sprain of unspecified site of right knee, initial encounter; M79.674 Pain in right toe(s); G47.30 Sleep apnea, unspecified; I10 Essential (primary) hypertension; E11.9 Type 2 diabetes mellitus without complications; K21.9 Gastro-esophageal reflux disease without esophagitis; F17.200 Nicotine dependence, unspecified, uncomplicated; W18.30XA Fall on same level, unspecified, initial encounter; Z79.899 Other long term (current) drug therapy; Z91.040 Latex allergy status; Z88.2 Allergy status to sulfonamides; Z88.8 Allergy status to other drugs, medicaments and biological substances
CPT/HCPCS: 72040; 73562-RT; 73610; 73660; 80053; 85025; 93005; 93010; 96374; 99284-25; J1170; J1171

== ENCOUNTER 2024-09-23 17:29 | Emergency (ER) | payer MEDICARE, OTHER ==
[~2024-09-23] VITALS: Ht 165.1 cm; Wt 72.6 kg
[~2024-09-23 17:29] MED LIST changes: +HYDROCODONE-AC1 EA19 PO
[2024-09-23] MEDS ORDERED: INSULANPEN XX (18:00)
[2024-09-23] MEDS ORDERED: OxyCODONE HCL 5 MG TAB PO ONE (18:50)
[2024-09-23] MEDS ORDERED: Amoxicillin/Clavulanate K 875 MG Tab PO ONE (19:50)
[2024-09-23] MEDS ORDERED: AMOCLA875 PO (19:51)
[2024-09-23 20:00] VITALS: BP 107/98
== END 2024-09-23 20:33 | disposition home or self-care (01) ==
LOC: ER 17:29
DX: T81.31XA Disruption of external operation (surgical) wound, not elsewhere classified, initial encounter (principal); Y83.8 Other surgical procedures as the cause of abnormal reaction of the patient, or of later complication, without mention of misadventure at the time of the procedure; I10 Essential (primary) hypertension; E11.9 Type 2 diabetes mellitus without complications; K21.9 Gastro-esophageal reflux disease without esophagitis; Z88.2 Allergy status to sulfonamides; Z88.4 Allergy status to anesthetic agent; Z91.040 Latex allergy status; Z79.4 Long term (current) use of insulin; Z79.899 Other long term (current) drug therapy; Z87.891 Personal history of nicotine dependence
CPT/HCPCS: 97597; 99284-25; A9270

== ENCOUNTER 2024-10-17 05:48 | Day surgery (SDC) | payer MEDICARE, OTHER ==
[~2024-10-17 05:48] MED LIST changes: +AMOCLA875 PO; +INSULANPEN XX
== END 2024-10-17 23:00 | disposition home or self-care (01) ==
LOC: WOUND 05:48
DX: T81.31XD Disruption of external operation (surgical) wound, not elsewhere classified, subsequent encounter (principal); E11.622 Type 2 diabetes mellitus with other skin ulcer; M43.00 Spondylolysis, site unspecified; Z88.2 Allergy status to sulfonamides; Z91.040 Latex allergy status; Z98.84 Bariatric surgery status; Y83.8 Other surgical procedures as the cause of abnormal reaction of the patient, or of later complication, without mention of misadventure at the time of the procedure
CPT/HCPCS: G0463

== ENCOUNTER 2024-10-25 05:30 | Day surgery (SDC) | payer MEDICARE, OTHER | END 2024-10-25 23:05 | disposition home or self-care (01) | LOC: WOUND 05:30 | DX: T81.31XD Disruption of external operation (surgical) wound, not elsewhere classified, subsequent encounter (principal); E11.622 Type 2 diabetes mellitus with other skin ulcer; M43.00 Spondylolysis, site unspecified; R06.02 Shortness of breath; R91.8 Other nonspecific abnormal finding of lung field; Z98.84 Bariatric surgery status; Y83.8 Other surgical procedures as the cause of abnormal reaction of the patient, or of later complication, without mention of misadventure at the time of the procedure | CPT/HCPCS: 71046; G0463 ==

== ENCOUNTER → 2024-10-30 | Outpatient (CLI) | payer MEDICARE, OTHER ==
[2024-10-30 18:18] LABS: BASOPHILS ABSOLUTE AUTO 0.05 K/mm3 (0.00-0.23); BASOPHILS PERCENT AUTO 1 % (0-2); EOSINOPHILS ABSOLUTE AUTO 0.04 K/mm3 (0.00-0.68); EOSINOPHILS PERCENT AUTO 1 % (0-6); Hematocrit 39.5 % (33.0-51.0); Hemoglobin 13.1 g/dL (11.5-16.0); IMMATURE GRAN ABSOLUTE AUTO 0.05 K/mm3 (0.00-0.10); IMMATURE GRAN PERCENT AUTO 1 % (0-1); LYMPHOCYTES PERCENT AUTO 22 % (21-46); MONOCYTES ABSOLUTE AUTO 0.72 K/mm3 (0.16-1.47); MONOCYTES PERCENT AUTO 9 % (4-13); Mean Corpuscular HGB Conc 33.2 g/dL (31.5-36.5); Mean Corpuscular Volume 90 fL (80-100); Mean Platelet Volume 10.2 fL (9.1-12.4); NEUTROPHILS ABSOLUTE AUTO 5.75 K/mm3 (1.96-9.15); NEUTROPHILS PERCENT AUTO 68 % (41-73); NRBC ABSOLUTE 0.03 K/mm3 (0.00-0.02); NRBC Auto 0.4 /100 WBC (0.0-0.2); Platelet Count 500 K/mm3 (150-400); RDW Coefficient Variation 14.9 % (11.7-14.2); RDW Standard Deviation 49.6 fL (35.1-46.3); Red Blood Cell Count 4.37 M/mm3 (3.80-5.20); White Blood Cell Count 8.51 K/mm3 (4.00-11.30)
[2024-10-30 18:30] LABS: Albumin, Blood 3.2 g/dL (3.4-5.0); Albumin/Globulin Ratio 0.7 (0.8-1.8); Bilirubin, Total 0.5 mg/dL (0.1-1.0); Bun/Creatinine Ratio 11.6 (12.0-20.0); Calcium, Blood 9.2 mg/dL (8.5-10.1); Creatinine, Blood 0.86 mg/dL (0.40-1.00); Globulin, Blood 4.6 g/dL (2.2-4.0); Potassium, Blood 3.7 mmol/L (3.5-5.5); Total Protein, Blood 7.8 g/dL (6.4-8.2)
== END ==
LOC: LAB 18:14 → LAB SHORT 18:14
DX: E86.0 Dehydration (principal); R11.14 Bilious vomiting
CPT/HCPCS: 80053; 85025

== ENCOUNTER 2024-11-01 05:20 | Day surgery (SDC) | payer MEDICARE, OTHER | END 2024-11-05 23:00 | disposition home or self-care (01) | LOC: WOUND 05:20 | DX: T81.30XA Disruption of wound, unspecified, initial encounter (principal); E11.622 Type 2 diabetes mellitus with other skin ulcer; M43.00 Spondylolysis, site unspecified; Z98.84 Bariatric surgery status; Y83.8 Other surgical procedures as the cause of abnormal reaction of the patient, or of later complication, without mention of misadventure at the time of the procedure | CPT/HCPCS: G0463 ==

== ENCOUNTER 2024-11-08 03:13 | Day surgery (SDC) | payer MEDICARE, OTHER | END 2024-11-08 23:00 | disposition home or self-care (01) | LOC: WOUND 03:13 | DX: T81.31XA Disruption of external operation (surgical) wound, not elsewhere classified, initial encounter (principal); E11.622 Type 2 diabetes mellitus with other skin ulcer; M43.00 Spondylolysis, site unspecified; E11.65 Type 2 diabetes mellitus with hyperglycemia; E53.8 Deficiency of other specified B group vitamins; E86.0 Dehydration; R11.14 Bilious vomiting; Z98.84 Bariatric surgery status; Y83.8 Other surgical procedures as the cause of abnormal reaction of the patient, or of later complication, without mention of misadventure at the time of the procedure | CPT/HCPCS: 36415; 80053; 82746; 83036; 83921; 85025; G0463 ==

== ENCOUNTER 2024-11-15 06:07 | Day surgery (SDC) | payer MEDICARE, OTHER | END 2024-11-15 23:00 | disposition home or self-care (01) | LOC: WOUND 06:07 | DX: T81.31XD Disruption of external operation (surgical) wound, not elsewhere classified, subsequent encounter (principal); E11.9 Type 2 diabetes mellitus without complications; M43.00 Spondylolysis, site unspecified; Z98.84 Bariatric surgery status | CPT/HCPCS: G0463 ==

== ENCOUNTER 2025-07-06 16:35 | Emergency (ER) | payer MEDICARE, OTHER ==
[~2025-07-06] VITALS: Ht 165.1 cm; Wt 67.1 kg
[2025-07-06] MEDS ORDERED: HYDROcodone 7.5-APAP 325 TAB PO ONE (19:55)
[2025-07-06] MEDS ORDERED: HYDR1TAB94 PO (21:05)
[2025-07-06 21:48] VITALS: BP 120/81
== END 2025-07-06 21:58 | disposition home or self-care (01) ==
LOC: ER 16:35
DX: S82.832A Other fracture of upper and lower end of left fibula, initial encounter for closed fracture (principal); W01.0XXA Fall on same level from slipping, tripping and stumbling without subsequent striking against object, initial encounter; Z87.891 Personal history of nicotine dependence; Z79.4 Long term (current) use of insulin; Z79.899 Other long term (current) drug therapy; Z88.8 Allergy status to other drugs, medicaments and biological substances; Z91.040 Latex allergy status; Z88.2 Allergy status to sulfonamides
CPT/HCPCS: 73502; 73590; 93971; 99284-25; A9270